=== PATIENT | female | born 1940 | race Caucasian/White ===

== ENCOUNTER → 2020-01-18 | Outpatient (CLI) | payer MEDICARE, OTHER ==
--- NOTE | 2020-01-19 12:18 | SLEEP ---
DATE OF STUDY: 01/19/2020 HOME SLEEP STUDY ATTENDING PHYSICIAN: Dilshad Ware MD. The patient is a 79-year-old, who weighs 225 pounds with a BMI of 52.3. The patient underwent home sleep study performed at [facility]. Total recording time was 254 minutes. During the night study, the patient had 39 obstructive apneas, no mixed or central apneas and 242 hypopneas. The patient's AHI was 66 per hour. Nocturnal oximetry study revealed an average oxygen saturation of 88% with lowest of 57%. 128 minutes were spent in oxygen saturation less than 90% and 53 minutes with saturation less than 85% and another 20 minutes with saturation less than 80%. Mean heart rate 64 beats per minute. IMPRESSION: 1. Severe obstructive sleep apnea at an AHI of 66 per hour. 2. [id number] nocturnal hypoxia secondary to obstructive sleep apnea. RECOMMENDATIONS: 1. The patient would benefit from in-lab CPAP titration study. Alternate treatment option would include home auto-CPAP between 5-20 cm water pressure. 2. Once the patient is optimally treated with CPAP, then follow up in 4-6 weeks to assess compliance and to document clinical improvement. 3. Weight loss is advised. 4. Avoid [employer] depressants. 5. Cautioned regarding driving until symptoms of sleep apnea resolve with above recommendations. NIKOLAS ROSAS MD DR: [email or web address] JOB#: [id number] / [id number] [facility] DILSHAD WARE MD
== END | disposition home or self-care (01) ==
LOC: RT 10:41
PROVIDERS: ATTEND Internal Medicine
DX: G47.33 Obstructive sleep apnea (adult) (pediatric) (principal); G47.34 Idiopathic sleep related nonobstructive alveolar hypoventilation
CPT/HCPCS: G0399